=== PATIENT | female | born 1975 | race Caucasian/White ===

== ENCOUNTER 2018-05-04 16:00 | Outpatient (RCR) | payer OTHER, SELFPAY ==
--- NOTE | 2018-04-27 14:51 | HMH.PTOPEV ---
PT Outpatient Evaluation Rehab PT Outpatient Evaluation Start: 04/27/18 14:39 Freq: Status: Active Protocol: Document 04/27/18 14:39 MAVIS (Rec: 04/27/18 14:50 MAVIS [id number]) Electronically Signed By Samuel Collins, PT 04/27/18 14:39 Outpatient Therapy Subjective History Subjective History Patient is a 43 year old female presenting to outpatient PT with reports of chronic low back pain with intermittent RLE radicular symptoms to the R foot. Symptoms began approx 7 months ago after completing a sit to stand transfer from a couch. Radicular symptoms started approx 1 month ago. Special tests indicate R anterior rotation of the innominant. Most recent x-rays negative. Chief Complaint Pain Stiff Symptom Type Ache Sharp Burning Numbness Shooting Symptoms Relieved By OTC Meds Prescription Meds Prior Functional Limitations None Current Functional Limitations Lifting Sleeping Sitting Symptom Description Constant but Variable Level of pain today (0-10) 7 Pain scale - at its best (0-10) 5 Pain scale - at its worst (0-10) 9 Lumbopelvic Eval Posture Thoracic Spine Posture Standing Position Neutral Lumbar Spine Posture Standing Position Neutral Assistive device Assistive Devices None / NA Gait Observation General Gait Pattern Observation No Deviations/Normal Palapation tenderness right Lumbar/Sacral Palpation Findings Tenderness Lumbar/Sacral Palpation Overall Comment R PSIS Accessory Movement L-spine Vertebrae Accessory Movements Central P/A [place] that Elicit Symptoms S1 right Range of Motion Lumbar Spine Active Flexion Range of 50 Motion (degrees) Lumbar Spine Active Extension Range of 15 Motion (degrees) Left Lumbar Spine Lateral Flexion Active 25 Range of Motion (degrees) Right Lumbar Spine Lateral Flexion 25 Active Range of Motion (degrees) Lumbar Spine ROM Limitations Soft Tissue Tightness Bony Restriction Manual Muscle Test Bilateral Knee Extension Strength Grade 5 Normal Knee Flexion Strength Grade 5 Normal Hip Flexion Stren
== END 2018-05-04 16:05 | disposition home or self-care (01) ==
LOC: PT 16:00
PROVIDERS: Visit Provider Physician Assistant
DX: M54.41 Lumbago with sciatica, right side (principal); G89.29 Other chronic pain
CPT/HCPCS: 97010; 97014; 97033; 97110; 97163; G0283

== ENCOUNTER → 2018-08-08 15:30 | Outpatient (CLI) | payer OTHER, SELFPAY ==
--- NOTE | 2018-08-08 15:32 | MR_ITS ---
MR lumbar spine wo con, MR 3-d myelogram/MRCP HISTORY: RT sided LBP with RT leg burning and pain. Symptoms [id number]. No trauma. No HX back surgery. ITS.REASON: Back pain radiating down RLE ORDERING PHYSICIAN: Omid Almazan PATIENT AGE: 43 years Comparison: X-RAY 04-13-18 TECHNIQUE: Standard multiplanar multiecho sequences are performed without contrast. 3-D MIP and myelographic images are also rendered and reviewed FINDINGS: There is normal alignment. There is straightening of the lumbar lordosis. The spinal cord ends at the L1 level. T11-T12: Unremarkable. T12-L1: Unremarkable. L1-L2: Unremarkable. L2-L3: Unremarkable. L3-L4: Unremarkable. L4-L5: Mild disc desiccation with bulging disc. There is a right-sided foraminal annular fissure minimal disc protrusion with moderate right-sided foraminal narrowing. L5-S1: Degenerative disc disease with a medium sized broad-based central disc protrusion which is slightly eccentric toward the right. This does abut both S1 nerve roots slightly more so on the right and results in canal stenosis now measuring approximately 10 mm. There is moderate bilateral foraminal narrowing. IMPRESSION: 1. L4-L5: Mild disc desiccation with bulging disc. There is a right-sided foraminal annular fissure minimal disc protrusion with moderate right-sided foraminal narrowing. 2. L5-S1: Degenerative disc disease with a medium sized broad-based central disc protrusion which is slightly eccentric toward the right. This does abut both S1 nerve roots slightly more so on the right and results in canal stenosis now measuring approximately 10 mm. There is moderate bilateral foraminal narrowing
== END ==
PROVIDERS: PCP Nurse Practitioner Family; Visit Provider Nurse Practitioner Family
DX: M54.16 Radiculopathy, lumbar region (principal)
CPT/HCPCS: 72148; 76376

== ENCOUNTER → 2018-09-14 13:41 | Outpatient (POV) | payer OTHER, SELFPAY | PROVIDERS: Visit Provider Neurological Surgery | DX: Z00.00 Encounter for general adult medical examination without abnormal findings (principal) ==

== ENCOUNTER → 2018-09-26 13:17 | Outpatient (CLI) | payer OTHER, SELFPAY ==
--- NOTE | 2018-09-26 13:19 | MR_ITS ---
MR lumbar spine wo con, MR 3-d myelogram/MRCP HISTORY: RT sided LBP. Numbness toes of left foot. Right-sided low back pain, left toe numbness ITS.REASON: LUMBAR DISC HERNIATION ORDERING PHYSICIAN: Arianna Staples PATIENT AGE: 43 years Comparison: MRI 08-08-18. TECHNIQUE: Standard multiplanar multiecho sequences are performed without contrast. 3-D MIP and myelographic images are also rendered and reviewed FINDINGS: Normal alignment. Spinal cord ends at the L1 level. L3-4: Unremarkable. L4-5: Minimal bulging disc. Small annular fissure once again noted in the right foraminal region with mild right foraminal narrowing. L5-S1: Degenerative disc disease with bulging disc and a central disc herniation with superior extrusion. The extruded portion of the disc is in the left paracentral region. There is compression upon both S1 nerve roots from the central portion of the disc herniation with the extruded left aspect of the disc causing moderate compression upon the left S1 nerve root. There is also some compression upon the L5 nerve root on the left from the disc herniation. Extruded portion of the disc has developed since the previous exam. There is some edema within and around the extruded portion of the disc. IMPRESSION: At L5-S1 there is central disc herniation slightly eccentric toward the left. There is extrusion of the disc superiorly which is in the left paracentral region with compression upon the left L5 and left S1 nerve roots. There is also some minimal impression upon the right S1 nerve root. The extruded portion of the disc has developed since the previous exam. Persistent small annular fissure in the right foraminal area at L4-L5 with minimal disc protrusion at this region and mild foraminal narrowing on the right
== END ==
PROVIDERS: PCP Nurse Practitioner Family; Visit Provider Physician Assistant Medical
DX: M51.16 Intervertebral disc disorders with radiculopathy, lumbar region (principal)
CPT/HCPCS: 72148; 76376

== ENCOUNTER 2019-09-21 15:29 | Emergency (ER) | payer OTHER, SELFPAY ==
[2019-09-21 15:47] VITALS: BP 110/87; PULSE 88; RESP 20; TEMP 36.7; O2SAT 98; BMI 24.1
--- NOTE | 2019-09-21 15:56 | HMH.EDUTC ---
[facility] [place] Clinical Impression: Low back pain Qualifiers: Chronicity: chronic Back pain laterality: bilateral Sciatica presence: with sciatica Sciatica laterality: bilateral sciatica Qualified Code(s): M54.42 - Lumbago with sciatica, left side Disposition: Home, Self-Care Condition on Discharge: Good Instructions: Low Back Pain, DI for Low Back Pain Additional Instructions: Go home and rest. It would be best if you rested tomorrow too. No heavy lifting. No twisting. Take the oral medications as directed. The muscle relaxer (robaxin) will make you drowsy, so don't drive or operate heavy machinery after taking it. Don't start the oral steroids (medrol dose pack) until tomorrow, since you had the shots in here today. Follow up with your regular doctor. GO TO THE ER FOR ANY WORSENING SYMPTOMS OR CONCERN, ESPECIALLY BOWEL OR BLADDER ISSUES, SADDLE AREA NUMBNESS, FEVER, ETC Prescriptions: methylPREDNISolone [Medrol] 4 mg PO DIRECTED 6 Days #21 tab.ds.pk Transmission Status: Received by [id number] Methocarbamol [Robaxin 500mg Tab] 500 mg PO BIDP PRN #30 tab PRN Reason: Muscle Spasm Transmission Status: Received by [id number] Referrals: Dylon Domingo MD [Primary Care Provider] - Time of Disposition: 16:16 Medical Decision Making - Medical Records Medical records reviewed: No: I reviewed the patient's medical records. - Oc Inquiry Pt receiving controlled substance: No Vital Signs: 09/21/19 15:47 09/21/19 16:17 Temperature 98.1 F 98.1 F Temperature Source Oral Pulse Rate 88 Pulse Rate [Right Brachial] 88 Respiratory Rate 20 20 Blood Pressure 110/87 Blood Pressure [Right Arm] 110/87 Blood Pressure Mean [Right Arm] 94 Blood Pressure Source [Right Arm] Automatic Cuff Blood Pressure Position [Right Arm] Sitting 02 Sat by Pulse Oximetry 98 Oxygen Delivery Method Room Air Orders (Tests/Meds): ED MEDICATIONS Discontinued Medications Generic Name Dose Route Start Last Admin Trade Name Freq PRN Reason Stop Dose Admin Ketorolac Tromethamine 60 mg 09/21/19 15:57 09/21/19 16:04 Toradol 60mg/2ml Vial IM 09/21/19 15:58 60 mg ONCE ONE Administration Methylprednisolone Sodium Succinate 125 mg 09/21/19 15:57 09/21/19 16:04 Solu-Medrol 125mg/2ml Vial IM 09/21/19 15:58 125 mg ONCE ONE Administration [facility] [place]PI - General Stated complaint: back pain Time Seen by Provider: 09/21/19 15:55 Mode of Arrival: Ambulatory Source of Information: Patient Limitations: No Limitations Description of Symptoms (Recalled from Triage Doc. by RN): PATIENT C/O INCREASED BACK PAIN X 5 DAYS. STATES SHE HAS DIFFICULTY SITTING, BENDING/ROLLING OVER. HAS HISTORY OF BACK SURGERY OCTOBER 2018 (HAD PART OF L5 REMOVED). SHE HAS TAKEN HER CYCLOBENZAPRINE RX BUT STATES IT IS NOT HELPING HEENT Symptoms (Recalled from RN notes): No Resp Symptoms (Recalled from RN notes): No Skin Symptoms (Recalled from RN notes): No MS Symptoms (Recalled from RN notes): Yes Functional Status (Recalled from RN notes): WNL - History of Present Illness Provider Complaint: She c/o worsening low back pain that radiates down both her legs. She has a history of DDD and chronic low back pain. - Related Data Home Medications Medication Instructions Recorded Confirmed Cyclobenzaprine HCl 10 mg PO TID 08/20/18 09/21/19 [Cyclobenzaprine 10mg Tab] Previous Rx's Medication Instructions Recorded Methocarbamol [Robaxin 500mg Tab] 500 mg PO BIDP PRN #30 tab 09/21/19 methylPREDNISolone [Medrol] 4 mg PO DIRECTED 6 Days #21 09/21/19 tab.ds.pk Allergies Allergy/AdvReac Type Severity Reaction Status Date / Time Penicillins [PENICILLINS] Allergy Mild Verified 08/03/18 13:45 pseudoephedrine Allergy Mild Verified 08/03/18 13:45 [From SUDAFED] - Worker's Comp Is this a Worker's Comp case?: No [facility] History - Hepatitis A Screen Drug use history?: No
[2019-09-21 16:17] VITALS: BP 110/87; PULSE 88; RESP 20; TEMP 36.7; O2SAT 98
== END 2019-09-21 16:20 | disposition home or self-care (01) ==
PROVIDERS: Emergency Provider Nurse Practitioner Family; PCP Emergency Medicine
DX: M54.42 Lumbago with sciatica, left side (principal); M51.36 Other intervertebral disc degeneration, lumbar region; Z87.442 Personal history of urinary calculi; Z90.09 Acquired absence of other part of head and neck; Z90.49 Acquired absence of other specified parts of digestive tract; F17.210 Nicotine dependence, cigarettes, uncomplicated
CPT/HCPCS: 96372; 99201

== ENCOUNTER → 2019-12-31 14:14 | Outpatient (CLI) | payer OTHER, SELFPAY ==
--- NOTE | 2019-12-31 14:17 | XR_ITS ---
PROCEDURE: XR FOOT WT BEARING RT 3V CLINICAL INDICATION: skin lesion Right great toe lesion COMPARISON: No exams were available for comparison FINDINGS: No fracture or dislocation. No lytic or blastic change. There is normal mineralization. The joint spaces are well-preserved. No significant degenerative/arthritic changes. No erosive changes evident. Other findings:None. IMPRESSION: No acute findings. Dictated by: Frandy Salas MD 12/31/2019 14:40 Electronically signed by Frandy Salas MD in [place] 12/31/2019 14:40
--- NOTE | 2019-12-31 14:17 | XR_ITS ---
PROCEDURE: XR FOOT WT BEARING LT 3V CLINICAL INDICATION: skin lesion COMPARISON: No exams were available for comparison FINDINGS: No fracture or dislocation. No lytic or blastic change. There is normal mineralization. The joint spaces are well-preserved. No significant degenerative/arthritic changes. No erosive changes evident. Other findings:None. IMPRESSION: No acute findings. Dictated by: Frandy Salas MD 12/31/2019 14:40 Electronically signed by Frandy Salas MD in [place] 12/31/2019 14:40
== END ==
PROVIDERS: PCP Emergency Medicine; Visit Provider Podiatrist
DX: L98.9 Disorder of the skin and subcutaneous tissue, unspecified (principal)
CPT/HCPCS: 73630

== ENCOUNTER → 2019-12-31 17:58 | Outpatient (CLI) | payer OTHER, SELFPAY | PROVIDERS: Visit Provider Podiatrist | DX: L84 Corns and callosities (principal); B07.0 Plantar wart; L57.0 Actinic keratosis; L98.9 Disorder of the skin and subcutaneous tissue, unspecified; M79.671 Pain in right foot | CPT/HCPCS: 87070; 87077; 87186; 87205 ==

== ENCOUNTER 2020-10-06 15:08 | Emergency (ER) | payer OTHER, SELFPAY ==
[2020-10-06 15:50] VITALS: BP 125/85; PULSE 82; RESP 16; TEMP 36.6; O2SAT 97; BMI 23.3
--- NOTE | 2020-10-06 15:57 | XR_ITS ---
PROCEDURE: XR THORACIC SPINE 2V CLINICAL INDICATION: FALL COMPARISON: CR TSP2 THORACIC SPINE AP LAT-2VIEW from 09/26/2012 FINDINGS: No acute fractures or traumatic subluxation. Bone density is normal. No significant degenerative/arthritic changes. Paravertebral soft tissues are unremarkable IMPRESSION: No acute fractures or traumatic subluxation. Dictated by: Manuela Frankel 10/06/2020 16:28 Manuela Frankel in [place] 10/06/2020 16:28
--- NOTE | 2020-10-06 15:57 | XR_ITS ---
PROCEDURE: XR WRIST RT MIN 3V CLINICAL INDICATION: FALL COMPARISON: No exams were available for comparison FINDINGS: No fracture or dislocation. No lytic or blastic change. There is normal mineralization. The joint spaces are well-preserved. No significant degenerative/arthritic changes. No erosive changes evident. Other findings:No significant soft tissue abnormality. IMPRESSION: No acute findings. Dictated by: Manuela Frankel 10/06/2020 16:30 Manuela Frankel in [place] 10/06/2020 16:30
--- NOTE | 2020-10-06 16:07 | HMH.EDUTC ---
[facility] [place] Clinical Impression: Strain of wrist, right Qualifiers: Encounter type: initial encounter Qualified Code(s): S66.911A - Strain of unspecified muscle, fascia and tendon at wrist and hand level, right hand, initial encounter Contusion Qualifiers: Encounter type: initial encounter Contusion area: wrist Laterality: right Qualified Code(s): S60.211A - Contusion of right wrist, initial encounter Disposition: Home, Self-Care Condition on Discharge: Good Instructions: Muscle Strain, DI for Muscle Strain, DI for Back Strain or Sprain Additional Instructions: Weightbearing as tolerated rest Ice with cold pack for 20 minutes remove may repeat for comfort every hour Anup wrap for support and swelling no less in the shower. Be sure not too tight but not to lose either Elevate with wrist above your heart as much as possible to help reduce swelling and therefore pain Ibuprofen every 6 hours as needed for pain or inflammation. If needs something more you can take Tylenol every 4 hours as needed as long as her primary care has told he was okayed for you to take both. If improving any do not need to follow-up you can bring begin exercising 2-3 weeks after injury. Follow-up immediately if new or worsening symptoms or no noticeable improvement over the next 3-5 days. call ortho Referrals: Dylon Domingo MD [Primary Care Provider] - Virgil Frankel MD [Staff Physician] - Time of Disposition: 16:34 Medical Decision Making - Oc Inquiry Pt receiving controlled substance: No Vital Signs: 10/06/20 15:50 Temperature 97.8 F Temperature Source Oral Pulse Rate [Right Brachial] 82 Respiratory Rate 16 Blood Pressure [Right Arm] 125/85 Blood Pressure Mean [Right Arm] 98 Blood Pressure Source [Right Arm] Automatic Cuff Blood Pressure Position [Right Arm] Sitting 02 Sat by Pulse Oximetry 97 Oxygen Delivery Method Room Air Orders (Tests/Meds): ORDERS Category Date Time Status XR thoracic spine 2V Stat Exams 10/06/20 15:57 Taken XR wrist RT min 3V Stat Exams 10/06/20 15:57 Taken [facility] [place] HPI - General Chief complaint: [facility] Stated complaint: AO fall 1500 injured R side/back and wrist Time Seen by Provider: 10/06/20 16:07 Mode of Arrival: Ambulatory Source of Information: Patient Limitations: No Limitations Description of Symptoms (Recalled from Triage Doc. by RN): PATIENT C/O INJURY TO RIGHT WRIST AND MIDDLE BACK AFTER FALLING OFF OF A BRICK WALL APPROX 1500 TODAY HEENT Symptoms (Recalled from RN notes): No Resp Symptoms (Recalled from RN notes): No Skin Symptoms (Recalled from RN notes): No MS Symptoms (Recalled from RN notes): Yes Functional Status (Recalled from RN notes): WNL - History of Present Illness Provider Complaint: 45 yr old female presents for pain in rt wrist and mid back. pt states she was moving furniture and slipped on a wall and fell hitting rt wrist,knee and mid back. - Related Data Home Medications Medication Instructions Recorded Confirmed No Known Home Medications 10/06/20 10/06/20 Allergies Allergy/AdvReac Type Severity Reaction Status Date / Time Penicillins [PENICILLINS] Allergy Mild Verified 01/21/20 11:25 pseudoephedrine Allergy Mild Verified 01/21/20 11:25 [From SUDAFED] - Worker's Comp Is this a Worker's Comp case?: No [facility] History - Hepatitis A Screen Drug use history?: No High risk sexual behaviors?: No History of sexually transmitted infection?: No Currently employed?: No Childcare worker?: No Do you have indoor plumbing?: Yes Do you have electricity?: Yes Attestation statement:: This patient has been screened for Hepatitis A risk factors. I have reviewed the patient's past medical history: Yes 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: Reports:: Kidney Stones, Migraine Denies:: Asthma, Cancer, Chronic Obstructive Pulmonary Disease (COPD), Depression, Diabetes Mellitus Type 1, Diabetes Mellitus Type 2, Heart Murmur, Hypertension, MRSA, Seiz
[2020-10-06 16:39] VITALS: BP 125/85; PULSE 82; RESP 16; TEMP 36.6; O2SAT 97
== END 2020-10-06 16:40 | disposition home or self-care (01) ==
PROVIDERS: Emergency Provider Nurse Practitioner Family; PCP Emergency Medicine
DX: S60.211A Contusion of right wrist, initial encounter (principal); W18.00XA Striking against unspecified object with subsequent fall, initial encounter; Y92.89 Other specified places as the place of occurrence of the external cause; F17.210 Nicotine dependence, cigarettes, uncomplicated; G43.709 Chronic migraine without aura, not intractable, without status migrainosus; Z87.442 Personal history of urinary calculi
CPT/HCPCS: 72070; 73110; 99202; G0463

== ENCOUNTER 2022-08-15 17:59 | Emergency (ER) | payer OTHER, SELFPAY ==
[2022-08-15 18:10] VITALS: BP 127/85; PULSE 76; RESP 20; TEMP 37.2; O2SAT 96; BMI 22.4
[2022-08-15 18:24] VITALS: BP 127/85; PULSE 76; RESP 20; TEMP 37.2; O2SAT 96
--- NOTE | 2022-08-15 18:30 | EXP.UTC ---
Discharge Plan Disposition Patient Disposition: Home, Self-Care Condition: Good Prescriptions Prescriptions: New cefdinir 300 mg capsule 300 mg PO BID Qty: 20 0RF No Action medroxyprogesterone 150 mg/mL suspension See Rx Instructions .ROUTE .COMPLEX Qty: 1 3RF Dose Instruction: INJECT 1ML INTRAMUSCULARLY ONCE EVERY 3 MONTHS DIRECTED Rx Instructions: INJECT 1ML INTRAMUSCULARLY ONCE EVERY 3 MONTHS DIRECTED Referrals Follow up/Referrals: Dylon Domingo MD [Primary Care Provider] - See instructions Activity Restrictions/Add. Instructions Additional Instructions/Restrictions: Start antibiotic as soon as possible and be sure to take as ordered for full length of time even though he should start feeling better in 24-48 hours. Tylenol or Motrin as needed for pain or fever Encourage fluids, water, Gatorade, Powerade, Pedialyte if infant/toddler/child Warm compresses often helps when placed over ear Return immediately for new or worsening symptoms no noticeable improvement in 48-72 hours and in 10-14 days to ensure the ears are return to baseline. Follow-up with primary care Clinical Impressions Clinical Impression: Otitis media, Excess wax in ear Instructions Patient Instructions: Middle Ear Infection Discharge ED Provider: Darlin ([facility])Tyler [facility] [place] HPI General Stated complaint: earache both ears,congestion,cough for a month Mode of Arrival: Ambulatory Source of Information: Patient Limitations: No Limitations Time Seen by Provider: 08/15/22 18:30 Description of Symptoms (Recalled from Triage Doc. by RN): PATIENT C/O BILATERAL EAR PAIN AND CONGESTION SINCE THIS MORNING HEENT Symptoms (Recalled from RN notes): Yes Resp Symptoms (Recalled from RN notes): No Skin Symptoms (Recalled from RN notes): No MS Symptoms (Recalled from RN notes): No Functional Status (Recalled from RN notes): WNL History of Present Illness Provider Complaint: 47 yr old female presents for evi ear pain that started this am. Related Data Previous Rx's Medication Instructions Recorded medroxyprogesterone 150 mg/mL See Rx Instructions .Route 12/15/21 intramuscular suspension .COMPLEX #1 mL cefdinir 300 mg capsule 300 mg PO BID #20 caps 08/15/22 Allergies Allergy/AdvReac Type Severity Reaction Status Date / Time Penicillins [PENICILLINS] Allergy Mild Verified 12/03/21 13:10 pseudoephedrine Allergy Mild Verified 12/03/21 13:10 [From [facility]CCO] Worker's Comp Is this a Worker's Comp case?: No [facility] Disclaimer: The information contained in this section may have been updated after the patient was seen, as this information can be updated by other users. 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) Smoking Status: Former smoker pack-years: 0 second hand exposure: Yes alcohol intake: never substance use type: denies use current occupational status: unemployed Travel in the last 8 weeks: None ROS Obtained: Yes All systems reviewed & no additional complaints except as documented Constitutional Constitutional: Reports system reviewed and no additional complaints, except as documented and Reports as per HPI Eyes Eyes: Reports system reviewed and no additional complaints, except as documented and Reports as per HPI ENT Ears, Nose, Mouth, and Throat: Reports system reviewed and no additional complaints, except as documented, Reports as per HPI and Reports otalgia Cardiovascular Cardiovascular: Reports system reviewed and no additional complaints, except as documented Respiratory Respiratory: Reports system reviewed and no additional complaints, except as documented Gastrointestinal Gastrointestingal: Reports system reviewed and no additional complaints, except as documented Musculoskeletal Musculoskeletal: Reports system reviewed and no additional complain
== END 2022-08-15 18:46 | disposition home or self-care (01) ==
PROVIDERS: Emergency Provider Nurse Practitioner Family; PCP Emergency Medicine
DX: H66.91 Otitis media, unspecified, right ear (principal); H61.22 Impacted cerumen, left ear
CPT/HCPCS: 99212; 99214; G0463

== ENCOUNTER 2023-05-25 23:19 | Observation (INO) | payer OTHER, SELFPAY ==
[2023-05-25 23:20] VITALS: BP 124/82; PULSE 120; RESP 18; TEMP 37.8; O2SAT 99; BMI 21.3
[2023-05-25 23:30] VITALS: BP 111/73; PULSE 118; O2SAT 98
--- NOTE | 2023-05-25 23:34 | CT_ITS ---
PROCEDURE INFORMATION: Exam: CT Abdomen And Pelvis Without Contrast Exam date and time: 05/25/2023 11:44 PM Age: 48 years old Clinical indication: Abdominal pain; Prior surgery; Surgery date: 6+ months; Surgery type: Cholecystectomy; Additional info: L>r flank pain, h/o stones TECHNIQUE: Imaging protocol: Computed tomography of the abdomen and pelvis without contrast. Total images: 264 Radiation optimization: All CT scans at this facility use at least one of these dose optimization techniques: automated exposure control; mA and/or kV adjustment per patient size (includes targeted exams where dose is matched to clinical indication); or iterative reconstruction. REPORTING DATA: Count of CT and Cardiac NM exams in prior 12 months: This patient has received 0 known CTs and 0 known cardiac nuclear medicine studies in the 12 months prior to the current study. COMPARISON: [facility] CT abdomen pelvis wo con 09/05/2017 9:49 PM FINDINGS: Lungs: Lung bases are clear. Heart: Trace pericardial effusion. Normal heart size. Liver: Normal. No mass. Gallbladder and bile ducts: Status post cholecystectomy. No bile duct dilatation. Pancreas: Minor peripancreatic edema. Spleen: Nonenlarged spleen with scattered calcified granuloma. Adrenal glands: Left greater than right adrenal thickening/hyperplasia. Kidneys and ureters: Left nephrolithiasis with evolving staghorn type calculus measuring approximately 18 mm in the midpole. Left greater than right mild perinephric edema. Tiny left renal cortical cyst. No hydronephrosis. No ureteral stones. Stomach and bowel: Unremarkable stomach and duodenum. No ileus or bowel obstruction. Unremarkable small bowel. Unremarkable terminal ileum. Mild sigmoid diverticulosis. Unremarkable rectum. Appendix: Normal appendix. Intraperitoneal space: Unremarkable. No free air. No significant fluid collection. Vasculature: Atherosclerotic aorta without aneurysm. Lymph nodes: Unremarkable. No enlarged lymph nodes. Urinary bladder: Collapsed bladder. Reproductive: 2.5 cm left ovarian cyst requiring no strict follow-up. Retroverted uterus. Physiologic right ovary. No adnexal mass. Status post tubal ligation. Bones/joints: Moderate degenerative disc disease L5-S1. Mild degenerative changes bilateral hips and SI joints. No acute osseous abnormality. Soft tissues: Very tiny fat containing umbilical hernia. IMPRESSION: 1. Left greater than right perinephric edema concerning for pyelonephritis. 2. 18 mm evolving staghorn type calcification left kidney. No hydronephrosis. 3. Minor peripancreatic edema likely from the directly adjacent left renal process, cannot exclude coexisting acute pancreatitis. 4. 2.5 cm left ovarian cyst requiring no strict follow-up. 5. Additional chronic and incidental findings. COMMENTS: Consistent with the [employer]'s Incidental Findings Committee white paper (J Am Mandeep Radiol 2018): Any incidental renal lesion less than 1 cm or classified as too small to characterize, or any incidental cystic renal lesion characterized as simple-appearing, is likely benign. No follow-up imaging is recommended for these lesions per consensus recommendations based on imaging criteria.
[2023-05-25 23:37] LABS: Microscopic, Urine URINE MICROSCOPIC (MICROSCOPIC)
[2023-05-25 23:38] LABS: Appearance,Urine Slightly Cloudy (Clear); Bilirubin,Urine Negative (Negative); Blood, Urine 1+ (Negative); Color,Urine YELLOW (Yellow); Glucose,Urine (UA) Negative (Negative); Ketones,Urine TRACE (Negative); Leukocyte Esterase,Urine 2+ (Negative); Nitrate,Urine POSITIVE (Negative); Protein,Urine 1+ (Negative); Urobilinogen,Urine >=8.0 EU/dl (0.2)
--- NOTE | 2023-05-25 23:39 | HMH.EDGENADL ---
Discharge Plan Disposition Patient Disposition: Admitted Condition: Good Prescriptions Prescriptions: No Action medroxyprogesterone 150 mg/mL suspension See Rx Instructions .ROUTE .COMPLEX Qty: 1 3RF Dose Instruction: INJECT 1ML INTRAMUSCULARLY ONCE EVERY 3 MONTHS DIRECTED Rx Instructions: INJECT 1ML INTRAMUSCULARLY ONCE EVERY 3 MONTHS DIRECTED cefdinir 300 mg capsule 300 mg PO BID Qty: 20 0RF Referrals Follow up/Referrals: Dylon Domingo MD [Primary Care Provider] - See instructions Clinical Impressions Clinical Impression: Sepsis due to urinary tract infection Instructions Patient Instructions: DI for Urinary Tract Infection (UTI), DI for Urinary Tract Infection in Children Discharge ED Provider: Tati Orosco General Adult HPI General Chief complaint: Urogenital-Female Stated complaint: fever, back pain x6days Time Seen by Provider: 05/25/23 23:26 Mode of Arrival: Ambulatory Source of Information: Patient and Spouse Limitations: No Limitations Description of Symptoms (Recalled from ER Triage Doc. by RN): Patient reports dysuria, chills, and lower back pain starting May 20. Patient reports increased water intake without change. Patient reports fever at home last dose of ibuprofen at 3pm. History of Present Illness HPI narrative: This patient is a 48-year-old female with history of tobacco use presenting to the emergency department for evaluation with concern for fever, chills, flank pain, dysuria, and nausea that started 05/20. She states that she increased her water intake without good improvement. She states that it started out as left flank pain, which felt similar to prior kidney stones that she had had, but then it progressed to bilateral flank pain as well as the fevers, chills, and dysuria. She took ibuprofen today around 3 PM without good improvement. No other concerns noted at this time. Related Data Previous Rx's Medication Instructions Recorded medroxyprogesterone 150 mg/mL See Rx Instructions .Route 12/15/21 intramuscular suspension .COMPLEX #1 mL cefdinir 300 mg capsule 300 mg PO BID #20 caps 08/15/22 Allergies Allergy/AdvReac Type Severity Reaction Status Date / Time Penicillins [PENICILLINS] Allergy Mild Verified 05/26/23 00:21 pseudoephedrine Allergy Mild Verified 05/26/23 00:21 [From [facility]] [facility] Disclaimer: The information contained in this section may have been updated after the patient was seen, as this information can be updated by other users. 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 Sciatica of right side Social History Smoking Status: Current every day smoker tobacco type: cigarettes packs per day: 1 second hand exposure: Yes alcohol intake: never substance use type: denies use current occupational status: unemployed Travel in the last 8 weeks: None ROS Obtained: Yes All systems reviewed & no additional complaints except as documented Physical Exam General General appearance: alert and in no apparent distress Comment: Nontoxic-appearing Head Head exam: atraumatic and normocephalic Eye Eye exam: Present normal appearance, PERRL and EOMI ENT ENT exam: Present normal exam, normal oropharynx, mucous membranes moist and normal external ear exam Neck Neck exam: Present normal inspection, full ROM and trachea midline; Absent tenderness Chest Chest inspection: Present normal inspection and symmetric chest wall rise; Absent tenderness Respiratory Respiratory exam: Present normal lung sounds bilaterally; Absent respiratory distress, wheezes, stridor or accessory muscle use Cardiovascular Cardiovascular exam: Present normal rhythm and tachycardia Abdominal Exam Abdominal exam: Present soft, tenderness (Suprapubic) and normal bowel sounds; Absent distention, guarding, rebound or rigidity Extremities Exam Extremities exam: Present normal inspection, full ROM and normal capillary refill; Absent tenderness or edema Back Exam Back exam: Present normal inspection, full ROM, tenderness, CVA tenderness (R) and CVA tenderness (L) Neurological Exam Neurological exam: Present alert, oriented X3, CN II-XII intact and normal gait; Absent motor sensory deficit Psychiatric Psychiatric exam: Present normal affect and normal mood Skin Skin exam: Present warm and dry Medical Decision Making Medical Records Medical records reviewed: Yes I reviewed the patient's medical records. Oc Inquiry Pt receiving controlled substance: No Vital Signs: 05/25/23 23:20 05/25/23 23:30 05/26/23 00:45 Temperature 100.0 F H Temperature Source Oral Pulse Rate 118 H 85 Pulse Rate [Left Radial] 120 H Respiratory Rate 18 18 Blood Pressure 111/73 110/71 Blood Pressure [Right Arm] 124/82 Blood Pressure Mean [Right Arm] 96 Blood Pressure Source [Right Arm] Automatic Cuff Blood Pressure Position [Right Arm] Sitting 02 Sat by Pulse Oximetry 99 98 96 Oxygen Delivery Method Room Air Room Air Lab Data Lab results reviewed: Yes I reviewed the patient's lab results. Lab Results 05/25/23 21:40: WBC 17.3 H, RBC 4.07 L, Hgb 12.9, Hct 37.6, MCV 92.4, MCH 31.7 H, MCHC 34.2, RDW 14.3, Plt Count 228, MPV 9.3, Neut % (Auto) 80.4 H, Lymph % (Auto) 11.8, [place] % (Auto) 6.7, Eos % (Auto) 0.8, Baso % (Auto) 0.3, Neut # (Auto) 13.9 H, Lymph # (Auto) 2.0, [place] # (Auto) 1.2 H, Eos # (Auto) 0.1, Baso # (Auto) 0.1, Sodium 135 L, Potassium 3.2 L, Chloride 104, Carbon Dioxide 21 L, Anion Gap 13.2, BUN 14, Creatinine 0.90, Estimated Creat Clear 74, Estimated GFR 67, Est GFR ( Amer) 82, Glucose 118 H, Lactate 0.9, Calcium 8.4, Lipase 35 05/25/23 23:23: Urine Color Yellow, Urine Appearance Slightly cloudy, Urine pH 6.0, Ur Specific [place] 1.020, Urine Protein 1+, Urine Glucose (UA) Negative, Urine Ketones Trace, Urine Blood 1+, Urine Nitrate Positive, Urine Bilirubin Negative, Urine Urobilinogen >=8.0, Ur Leukocyte Esterase 2+ A, Urine WBC 5-10, Urine Bacteria 4+ 05/25/23 21:40 05/25/23 21:40 Orders (Tests/Meds): ED MEDICATIONS Generic Name Dose Route Start Last Admin Trade Name Freq PRN Reason Stop Dose Admin Ceftriaxone Sodium 2 gm/ 100 mls @ 200 mls/hr 05/25/23 23:45 05/26/23 00:35 Sodium Chloride IV 06/04/23 23:44 200 mls/hr Q24H WNE Administration Sodium Chloride 1,000 mls @ 999 mls/hr 05/26/23 00:49 Sod Chlor 0.9% 1000ml Bag IV 05/26/23 01:49 .Q1H1M ONE Discontinued Medications Generic Name Dose Route Start Last Admin Trade Name Freq PRN Reason Stop Dose Admin Lactated Ringer's 1,000 mls @ 999 mls/hr 05/25/23 23:34 05/25/23 23:42 Lactated Ringer's 1000 Ml Bag IV 05/26/23 00:34 999 mls/hr .Q1H1M ONE Administration Ketorolac Tromethamine 15 mg 05/25/23 23:34 05/25/23 23:43 Ketorolac 30mg/Ml Vial IV 05/25/23 23:35 15 mg ONCE ONE Administration Ondansetron HCl 4 mg 05/25/23 23:34 05/25/23 23:43 Ondansetron 4mg/2ml Vial IV 05/25/23 23:35 4 mg ONCE ONE Administration ORDERS Category Date Time Status CT abdomen pelvis wo con Stat Cat Scan 05/25/23 23:34 Completed BMP [Basic Metabolic Panel] Stat Lab 05/25/23 21:40 Completed Complete Blood Count Auto Diff Stat Lab 05/25/23 21:40 Results Lactic Acid Stat Lab 05/25/23 21:40 Completed Lipase Stat Lab 05/26/23 21:40 Completed Urinalysis and Microscopic Stat Lab 05/25/23 23:23 Completed Blood Culture Stat Micro 05/26/23 00:06 Ordered Urine Culture Stat Micro 05/25/23 23:23 Received Medical Decision Narrative: In summary, this patient is a 48-year-old female presenting to the Emergency Department for evaluation of bilateral flank pain, dysuria, fevers, chills, and nausea. Differential diagnoses considered include but are not limited to pyelonephritis, ureterolithiasis, JORGE ALBERTO, cystitis, sepsis. Ruling out the most morbid conditions drove assessment. On exam, the patient is nontoxic-appearing. She is slightly tachycardic and borderline febrile. She is suprapubic tenderness and bilateral CVA tenderness. Workup included CBC, BMP, lactic acid, urinalysis, and CT abdomen and pelvis without IV contrast. She was given a bolus of IV fluids as well as IV Toradol, acetaminophen, and Zofran to assess for symptomatic improvement. I independently interpreted CT scan prior to the radiologist read and noted perinephric fat stranding without obstructive ureteral stones. Patient does have a left staghorn calculus. Please see their read for final interpretation. Labs were obtained that demonstrated leukocytosis and concerns for urinary tract infection. Patient does meet sepsis criteria. Second liter bolus of IV fluids was ordered so that the patient was effectively given a sepsis bolus. She was given IV Rocephin as well. Blood cultures and urine culture are pending. On reassessment, patient had good improvement after administration of IV fluids. She has good perfusion with improvement in her heart rate. I had a discussion with her regarding the risk for bacteremia given that she meets sepsis criteria, and patient is agreeable to be admitted. Given this, I had a discussion with the hospitalist who graciously excepted the patient for admission. The patient was admitted in stable condition for further evaluation and management. Critical Care Critical Care Time Critical Care Time: No
[2023-05-25] MEDS: LACTATED RINGERS 1000ML 1,000 ML 999 ML IV (23:42)
[2023-05-25] MEDS: KETOROLAC 30MG/ML VIAL 15 MG IV (23:43)
[2023-05-25] MEDS: ONDANSETRON 4MG/2ML VIAL 4 MG IV (23:43)
[2023-05-25 23:55] LABS: Bacteria,Urine 4+ /lpf
[2023-05-25 23:55] LABS: Basophils # 0.1 K/mm3 (0-0.2); Basophils % 0.3 % (0.1-2.0); Eosinophils # 0.1 K/mm3 (0.0-0.4); Eosinophils % 0.8 % (0.1-12.0); Hematocrit 37.6 % (37.0-47.0); Hemoglobin 12.9 g/dL (12.2-16.2); Lymphocytes % 11.8 % (10-50); Mean Corpuscular HGB Conc 34.2 g/dL (31.8-35.4); Mean Corpuscular Hemoglobin 31.7 pg (27.0-31.2); Mean Corpuscular Volume 92.4 fl (81-99); Mean Platelet Volume 9.3 fl (7.4-10.4); Monocytes # 1.2 K/mm3 (0.1-1.0); Monocytes % 6.7 % (1.7-9.3); Neutrophils # 13.9 K/mm3 (1.8-7.8); Neutrophils % 80.4 % (37.0-80.0); Platelet Count 228 K/mm3 (142-424); Red Blood Count 4.07 M/mm3 (4.20-5.40); Red Cell Distribution Width 14.3 % (11.5-17.5); White Blood Count 17.3 K/mm3 (4.8-10.8)
[2023-05-25 23:56] LABS: Chloride 104 mmol/L (98-107); Potassium 3.2 mmoL/L (3.5-5.1); Sodium 135 mmol/L (136-145)
[2023-05-25 23:59] LABS: Anion Gap 13.2 mEq/L (5-15); Blood Urea Nitrogen 14 mg/dl (7-17); Calcium 8.4 mg/dl (8.4-10.2); Carbon Dioxide 21 mmol/L (22.0-30.0); Creatinine Clearance Estimated 74 mL/min (50-200); Estimated Glomerular Filt Rate 67 ml/min (>60); GFR (African American) 82 ML/MIN (>60); Glucose 118 mg/dl (74-100)
[2023-05-26] VITALS (12 sets, daily range): BP systolic 89–110; BP diastolic 52–71; PULSE 65–86; RESP 16–18; TEMP 36.4–37.1; O2SAT 94–100; BMI 21.2
[2023-05-26] LABS: Lactic Acid 0.9 mmol/L (0.7-2.1)
[2023-05-26 00:05] LABS: MANUAL DIFFERENTIAL MANUAL DIFFERENTIAL (MANUAL DIFF)
[2023-05-26 00:30] LABS: Lipase 35 U/L (23-300)
[2023-05-26] MEDS: CEFTRIAXONE SODIUM 2 GM in 0.9 % SODIUM CHLORIDE 100 ML IV ×2 (00:35→20:40)
--- NOTE | 2023-05-26 00:50 | PC.NURSE ---
Notified house talent acquisition administrator of need for bed assignment. Patient to be admitted for UTI/pylonephritis/sepsis.
--- NOTE | 2023-05-26 00:51 | EXP.HP ---
History of Present Illness *Admission Date: 05/26/23 *Reason for visit:: pyelonephritis/ sepsis *History of present illness: This is a 48-year-old female with no other significant history than tobacco use, and previous kidney stones presenting to the emergency department for evaluation of fever, chills, flank pain, dysuria, and nausea that started 05/20. She states that she increased her water intake without good improvement. She states that it started out as left flank pain, which felt similar to prior kidney stones that she had had, but then it progressed to bilateral flank pain as well as the fevers, chills, and dysuria. She took ibuprofen today around 3 PM without good improvement. No other concerns noted at this time. Admitted for treatment and management. [facility] Disclaimer: The information contained in this section may have been updated after the patient was seen, as this information can be updated by other users. 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 (Updated 05/26/23 @ 05:05 by Ronnie Brennan APRN) Degenerative disk disease Kidney stones Sciatica of right side Spinal stenosis Surgical History (Updated 05/26/23 @ 01:41 by Halina Hardy RN) H/O Spinal surgery History of tonsillectomy History of tubal ligation Hx of cholecystectomy Social History Smoking Status: Current every day smoker tobacco type: cigarettes packs per day: 1 second hand exposure: Yes alcohol intake: never substance use type: denies use current occupational status: unemployed Travel in the last 8 weeks: None Review of Systems Review of Systems Review of systems:: pertinent systems reviewed and negative unless documented below Meds Home Medications and Allergies Home Medications Medication Instructions Recorded Confirmed Type No Known Home Medications 05/26/23 05/26/23 History New Prescriptions to Start Prescriptions: Allergies Allergy/AdvReac Type Severity Reaction Status Date / Time Penicillins [PENICILLINS] Allergy Mild Verified 05/26/23 00:21 pseudoephedrine Allergy Mild Verified 05/26/23 00:21 [From [facility]] Exam Data for Last 24 hours Vital signs and Labs for Last 24 Hours: Temp Pulse Resp BP Pulse Ox O2 Del Method 100.0 F H 85 18 110/71 96 Room Air 05/25/23 23:20 05/26/23 00:45 05/26/23 00:45 05/26/23 00:45 05/26/23 00:45 05/26/23 00:45 Laboratory Results - last 24 hr 05/25/23 21:40: WBC 17.3 H, RBC 4.07 L, Hgb 12.9, Hct 37.6, MCV 92.4, MCH 31.7 H, MCHC 34.2, RDW 14.3, Plt Count 228, MPV 9.3, Neut % (Auto) 80.4 H, Lymph % (Auto) 11.8, [place] % (Auto) 6.7, Eos % (Auto) 0.8, Baso % (Auto) 0.3, Neut # (Auto) 13.9 H, Lymph # (Auto) 2.0, [place] # (Auto) 1.2 H, Eos # (Auto) 0.1, Baso # (Auto) 0.1, Sodium 135 L, Potassium 3.2 L, Chloride 104, Carbon Dioxide 21 L, Anion Gap 13.2, BUN 14, Creatinine 0.90, Estimated Creat Clear 74, Estimated GFR 67, Est GFR ( Amer) 82, Glucose 118 H, Lactate 0.9, Calcium 8.4, Lipase 35 05/25/23 23:23: Urine Color Yellow, Urine Appearance Slightly cloudy, Urine pH 6.0, Ur Specific [place] 1.020, Urine Protein 1+, Urine Glucose (UA) Negative, Urine Ketones Trace, Urine Blood 1+, Urine Nitrate Positive, Urine Bilirubin Negative, Urine Urobilinogen >=8.0, Ur Leukocyte Esterase 2+ A, Urine WBC 5-10, Urine Bacteria 4+ I & O for Last 24 hours: Intake & Output 05/23/23 05/24/23 05/25/23 05/26/23 23:59 23:59 23:59 23:59 Weight 59.874 kg Constitutional Constitutional: mild distress and cooperative *Routine HEENT Exam Head: Present normocephalic and atraumatic Eye: Present EOMI, PERRL and normal accommodation ENT: Present mucous membranes moist *Routine Neck Exam Neck: Present supple, full ROM and trachea midline *Routine Respiratory Exam Respiratory: Present diminished air movement, normal respiratory effort, able to speak in complete sentences and symmetric chest movement *Routine Cardiovascular Exam Cardiovascular: Present RRR, Normal S1, Normal S2 and tachycardia *Routine Abdominal Exam Abdominal: Present soft, normoactive bowel sounds and tenderness; Absent organomegaly Comments: left flank pain *Routine Rectal Exam Rectal:: deferred *Routine Genitalia Exam Genitalia:: deferred *Routine Extremities Exam Extremities: Present full ROM and pulses intact; Absent cyanosis, clubbing or edema *Routine Skin Exam Skin: Present intact, dry and warm *Routine Neurological Exam Neurological: Present alert, oriented X3, normal reflexes, moving all extremities and normal speech Routine Psychiatric Exam Psychiatric: Present normal thought process, cooperative and good judgment H&P: Result Imaging and Cardiology CT scan - abdomen: Status: image reviewed by me, Preliminary report and final report EKG: Status: image reviewed by me and Preliminary report Assessment and Plan *Assessment and plan (1) Sepsis due to urinary tract infection: Status: Acute Category: Medical Code(s): A41.9 - Sepsis, unspecified organism; N39.0 - Urinary tract infection, site not specified (2) Pyelonephritis: Status: Acute Category: Medical Code(s): N12 - Tubulo-interstitial nephritis, not specified as acute or chronic (3) Acute hypokalemia: Status: Acute Category: Medical Code(s): E87.6 - Hypokalemia (4) Tobacco abuse: Status: Acute Category: Medical Code(s): Z72.0 - Tobacco use Plan 48-year-old female with no other significant history than tobacco use, and previous kidney stones presenting to the emergency department for evaluation of fever, chills, flank pain, dysuria, and nausea. On arrival, patient presented with nontoxic appearance, tachycardia and low-grade temp. UA was collected. Concern for infection. Patient underwent sepsis workup. CT of the abdomen was obtained. Imaging reviewed. There is a left perinephritic edema, most likely pyelonephritis. Labs positive for mild leukocytosis, with mild electrolyte disturbances. Findings discussed with the ER. I agree for admission. Plan as follows: -Sepsis secondary to pyelonephritis: Admit patient for medical services. Patient hemodynamically stable. Dispo MedSurg. Sepsis workup done at the ER. Continue IV fluid, normal saline at 100 MLS per hour UA and blood culture pending Started on IV ceftriaxone Monitor for sepsis, temp, and hemodynamically decompensation Pain management, Tylenol and morphine as needed Monitor renal output. -Hypokalemia: Replace electrolytes. Monitor for electrolyte imbalance monitor and storage bin tender Repeat labs Serial CMP CBC -Current heavy tobacco user: On nicotine patch. Education provided about cessation. Lovenox for DVT prophylaxis. On Protonix Full code Rounded on patient after nurse practitioner. Personally examined and interviewed patient. Agree with exam findings and care plan as documented. Patient continues to require inpatient management for IV antibiotics. Staghorn stone seen on CT of abdomen. Will need urologic eval as an outpatient as this is a potential culprit in her sepsis. White cell count is improved by morning labs from 17-10. Blood pressure soft but stable and had an acceptable range with MAP greater than 65. Continue IV ceftriaxone daily. Cultures pending
--- NOTE | 2023-05-26 01:11 | PC.NURSE ---
Nurse to nurse report to Halina GOMEZ.
--- NOTE | 2023-05-26 01:23 | PC.NURSE ---
pt arrived to floor via wheelchair @01:22
[2023-05-26] MEDS: 0.9 % SODIUM CHLORIDE 1000ML 1,000 ML 999 ML IV (01:47)
[2023-05-26 01:53] LABS: Eosinophils % 1 % (0-3); Lymphocytes % 9 % (10-50); Monocytes % 6 % (2-9); Neutrophils % 84 % (42-76); Total Cells Counted 100
[2023-05-26 01:54] LABS: Platelet Estimate Normal; RBC Morphology Normal
[2023-05-26] MEDS: 0.9 % SODIUM CHLORIDE 1000ML 1,000 ML 50 ML IV (02:49)
[2023-05-26] MEDS: MORPHINE 2MG/ML SYRINGE 2 MG IV (04:06)
[2023-05-26] MEDS: ONDANSETRON 4MG/2ML VIAL 4 MG IV (04:06)
--- NOTE | 2023-05-26 05:21 | EXP.SEPSISRE ---
[facility] Tissue Perfusion Eval Sepsis Re-Evaluation Performed: Yes Date Performed: 05/26/23 Time Performed: 05:21
[2023-05-26] MEDS: POTASSIUM CHLORIDE 20MEQ TAB 40 MEQ PO (05:45)
[2023-05-26 06:33] LABS: Eosinophils # 0.1 K/mm3 (0.0-0.4)
[2023-05-26 06:40] LABS: Basophils % 0.3 % (0.1-2.0); Eosinophils % 0.8 % (0.1-12.0); Hemoglobin 10.6 g/dL (12.2-16.2); Lymphocytes # 2.6 K/mm3 (0.7-4.5); Lymphocytes % 23.6 % (10-50); Mean Corpuscular HGB Conc 34.1 g/dL (31.8-35.4); Mean Corpuscular Volume 93.8 fl (81-99); Mean Platelet Volume 9.5 fl (7.4-10.4); Monocytes # 0.8 K/mm3 (0.1-1.0); Monocytes % 7.4 % (1.7-9.3); Neutrophils # 7.4 K/mm3 (1.8-7.8); Neutrophils % 67.9 % (37.0-80.0); Platelet Count 195 K/mm3 (142-424); Red Blood Count 3.31 M/mm3 (4.20-5.40); Red Cell Distribution Width 14.4 % (11.5-17.5); White Blood Count 10.9 K/mm3 (4.8-10.8)
[2023-05-26 06:49] LABS: Chloride 110 mmol/L (98-107); Sodium 138 mmol/L (136-145)
[2023-05-26 06:50] LABS: Potassium 3.1 mmoL/L (3.5-5.1)
[2023-05-26 06:52] LABS: Alanine Aminotransferase 13 U/L (12-78); Albumin Level 2.9 g/dl (3.5-5.0); Alkaline Phosphatase 87 U/L (38-126); Anion Gap 9.1 mEq/L (5-15); Aspartate Amino Transferase 16 U/L (14-36); Bilirubin,Total 0.4 mg/dl (0.2-1.3); Blood Urea Nitrogen 14 mg/dl (7-17); Calcium 7.4 mg/dl (8.4-10.2); Carbon Dioxide 22 mmol/L (22.0-30.0); Creatinine Clearance Estimated 83 mL/min (50-200); Estimated Glomerular Filt Rate 77 ml/min (>60); GFR (African American) 93 ML/MIN (>60); Globulin 2.9 g/dL (1.3-3.2); Glucose 95 mg/dl (74-100); Total Protein,Serum 5.8 g/dl (6.3-8.2)
--- NOTE | 2023-05-26 08:27 | HMH.PHAINT1 ---
Pharmacy Intervention Comments: Verified with patient that bedside that patient does not take any medications at home prior to admission.
[2023-05-26] MEDS: ENOXAPARIN 40MG/0.4ML SYRINGE 40 MG SQ (08:45)
[2023-05-26] MEDS: PANTOPRAZOLE 40MG TABLET 40 MG PO (08:46)
--- NOTE | 2023-05-26 18:47 | PC.NURSE ---
PT HAS DONE WELL, NO CHANGES FROM PREVIOUS SHIFT. NO C/O PAIN, N/V, IVMF DC. VSS.
[2023-05-27] VITALS: BP 118/47; PULSE 66; PULSE 68; RESP 16; TEMP 36.8; O2SAT 99
[2023-05-27 04:00] VITALS: BP 125/78; PULSE 67; PULSE 76; RESP 16; TEMP 36.9; O2SAT 98; BMI 21.7
--- NOTE | 2023-05-27 04:14 | PC.NURSE ---
HAS HAD A QUIET NIGHT. RECEIVING IVFs. VOICES NO C/O'S. REPORTS OCCASSIONAL DYSURIA,
[2023-05-27 06:27] LABS: Basophils % 0.3 % (0.1-2.0); Chloride 113 mmol/L (98-107); Eosinophils # 0.1 K/mm3 (0.0-0.4); Hematocrit 29.5 % (37.0-47.0); Hemoglobin 10.3 g/dL (12.2-16.2); Lymphocytes # 2.1 K/mm3 (0.7-4.5); Lymphocytes % 21.1 % (10-50); Mean Corpuscular HGB Conc 35.1 g/dL (31.8-35.4); Mean Corpuscular Hemoglobin 32.5 pg (27.0-31.2); Mean Corpuscular Volume 92.7 fl (81-99); Monocytes # 0.6 K/mm3 (0.1-1.0); Monocytes % 5.5 % (1.7-9.3); Neutrophils # 7.3 K/mm3 (1.8-7.8); Neutrophils % 72.2 % (37.0-80.0); Platelet Count 200 K/mm3 (142-424); Red Blood Count 3.18 M/mm3 (4.20-5.40); Red Cell Distribution Width 14.8 % (11.5-17.5); White Blood Count 10.1 K/mm3 (4.8-10.8)
[2023-05-27 06:28] LABS: Potassium 3.4 mmoL/L (3.5-5.1); Sodium 140 mmol/L (136-145)
[2023-05-27 06:30] LABS: Alanine Aminotransferase 11 U/L (12-78); Alkaline Phosphatase 80 U/L (38-126); Aspartate Amino Transferase 13 U/L (14-36); Bilirubin,Total 0.5 mg/dl (0.2-1.3); Blood Urea Nitrogen 10 mg/dl (7-17); Creatinine Clearance Estimated 98 mL/min (50-200); Estimated Glomerular Filt Rate 90 ml/min (>60); GFR (African American) 109 ML/MIN (>60)
[2023-05-27 06:31] LABS: Albumin Level 2.7 g/dl (3.5-5.0); Albumin/Globulin Ratio 0.9 (1.1-1.8); Anion Gap 11.4 mEq/L (5-15); Calcium 7.7 mg/dl (8.4-10.2); Carbon Dioxide 19 mmol/L (22.0-30.0); Globulin 2.9 g/dL (1.3-3.2); Glucose 94 mg/dl (74-100); Magnesium 2.1 mg/dl (1.6-2.3); Total Protein,Serum 5.6 g/dl (6.3-8.2)
--- NOTE | 2023-05-27 07:03 | EXP.DC.SUM ---
General Admission date:: 05/26/23 Discharge date: 05/27/23 HPI HPI HPI: This is a 48-year-old female with no other significant history than tobacco use, and previous kidney stones presenting to the emergency department for evaluation of fever, chills, flank pain, dysuria, and nausea that started 05/20. She states that she increased her water intake without good improvement. She states that it started out as left flank pain, which felt similar to prior kidney stones that she had had, but then it progressed to bilateral flank pain as well as the fevers, chills, and dysuria. She took ibuprofen today around 3 PM without good improvement. No other concerns noted at this time. Admitted for treatment and management. Hospital Course Hospital Course Hospital Course: 48-year-old female with no other significant history than tobacco use, and previous kidney stones presenting to the emergency department for evaluation of fever, chills, flank pain, dysuria, and nausea. On arrival, patient presented with nontoxic appearance, tachycardia and low-grade temp. UA was collected. Concern for infection. Patient underwent sepsis workup. CT of the abdomen was obtained. Imaging reviewed. There is left perinephritic edema, most consistent with nephritis. Also noted to have staghorn calculus. Admitted for sepsis and pyelonephritis. Has done well with antibiotics, symptoms defervesced. Meeting criteria for discharge home to complete oral antibiotics. Will refer to urology as an outpatient. Problems addressed as follows: -Sepsis secondary to pyelonephritis: Admitted for sepsis secondary to pyelonephritis. Started on empiric IV antibiotics with ceftriaxone. Symptoms defervesced over the next 24 hours. Given improvement clinically, transition to oral antibiotics with Levaquin to complete 7-day course. Urine and blood culture still pending at time of discharge. Referred to urology given findings on CT of staghorn calculus in left kidney. Will need definitive treatment in the coming months as this may be an underlying culprit for her infection. No signs of obstruction at this time however. -Hypokalemia: Improved with replacement. Back to normal on day of discharge. Recommend repeat labs and follows up with PCP -Current heavy tobacco user: On nicotine patch. Education provided about cessation. Stable for discharge home. Discussed medications and need for subsequent follow-up. Spent 30 minutes in discharge counseling, documentation, chart review, and direct care with patient. Exam Data for Last 24 hours Vital signs and Labs for Last 24 Hours: Temp Pulse Resp BP Pulse Ox O2 Del Method 98.5 F 76 16 125/78 98 Room Air 05/27/23 04:00 05/27/23 04:00 05/27/23 04:00 05/27/23 04:00 05/27/23 04:00 05/27/23 06:49 Laboratory Results - last 24 hr 05/27/23 05:54: WBC 10.1, RBC 3.18 L, Hgb 10.3 L, Hct 29.5 L, MCV 92.7, MCH 32.5 H, MCHC 35.1, RDW 14.8, Plt Count 200, MPV 9.0, Neut % (Auto) 72.2, Lymph % (Auto) 21.1, [place] % (Auto) 5.5, Eos % (Auto) 1.0, Baso % (Auto) 0.3, Neut # (Auto) 7.3, Lymph # (Auto) 2.1, [place] # (Auto) 0.6, Eos # (Auto) 0.1, Baso # (Auto) 0.0, Sodium 140, Potassium 3.4 L, Chloride 113 H, Carbon Dioxide 19 L, Anion Gap 11.4, BUN 10 D, Creatinine 0.70, Estimated Creat Clear 98, Estimated GFR 90, Est GFR ( Amer) 109, Glucose 94, Calcium 7.7 L, Magnesium 2.1, Total Bilirubin 0.5, AST 13 L, ALT 11 L, Alkaline Phosphatase 80, Total Protein 5.6 L, Albumin 2.7 L, Globulin 2.9, Albumin/Globulin Ratio 0.9 L I & O for Last 24 hours: Intake & Output 05/24/23 05/25/23 05/26/23 05/27/23 23:59 23:59 23:59 23:59 Intake Total 3069 / 3069 Output Total 2 / 2 0 / 0 Balance 3067 / 3067 0 / 0 Weight 59.874 kg 59.738 kg 61.507 kg Constitutional Constitutional: no acute distress and average body habitus *Routine HEENT Exam Head: Present normocephalic Eye: Present EOMI and PERRL ENT: Present mucous membranes moist *Routine Neck Exam Neck: Present supple; Absent lymphadenopathy *Routine Respiratory Exam Respiratory: Present CTA bilaterally *Routine Cardiovascular Exam Cardiovascular: Present RRR *Routine Abdominal Exam Abdominal: Present soft and normoactive bowel sounds; Absent tenderness *Routine Extremities Exam Extremities: Absent cyanosis, clubbing or edema *Routine Skin Exam Skin: Present warm; Absent rash *Routine Neurological Exam Neurological: Present alert, oriented X3 and moving all extremities; Absent altered mental status Results Data Completed and Pending Labs on day of discharge: Labs from last 24 hours 05/27/23 05:54 WBC 10.1 RBC 3.18 L Hgb 10.3 L Hct 29.5 L MCV 92.7 MCH 32.5 H MCHC 35.1 RDW 14.8 Plt Count 200 MPV 9.0 Neut % (Auto) 72.2 Lymph % (Auto) 21.1 [place] % (Auto) 5.5 Eos % (Auto) 1.0 Baso % (Auto) 0.3 Neut # (Auto) 7.3 Lymph # (Auto) 2.1 [place] # (Auto) 0.6 Eos # (Auto) 0.1 Baso # (Auto) 0.0 Sodium 140 Potassium 3.4 L Chloride 113 H Carbon Dioxide 19 L Anion Gap 11.4 BUN 10 D Creatinine 0.70 Estimated Creat Clear 98 Estimated GFR 90 Est GFR ( Amer) 109 Glucose 94 Calcium 7.7 L Magnesium 2.1 Total Bilirubin 0.5 AST 13 L ALT 11 L Alkaline Phosphatase 80 Total Protein 5.6 L Albumin 2.7 L Globulin 2.9 Albumin/Globulin Ratio 0.9 L DS: Diagnosis Discharge Diagnosis (1) Sepsis due to urinary tract infection: Status: Acute Code(s): A41.9 - Sepsis, unspecified organism; N39.0 - Urinary tract infection, site not specified (2) Pyelonephritis: Status: Acute Code(s): N12 - Tubulo-interstitial nephritis, not specified as acute or chronic (3) Acute hypokalemia: Status: Acute Code(s): E87.6 - Hypokalemia (4) Tobacco abuse: Status: Acute Code(s): Z72.0 - Tobacco use Meds Home Medications and Allergies Home Medications Medication Instructions Recorded Confirmed Type levofloxacin 750 mg tablet 750 mg PO 1100 5 days #5 tabs 05/27/23 Rx New Prescriptions to Start Prescriptions: levofloxacin Garland Lynn Allergies Allergy/AdvReac Type Severity Reaction Status Date / Time Penicillins [PENICILLINS] Allergy Mild Verified 05/26/23 00:21 pseudoephedrine Allergy Mild Verified 05/26/23 00:21 [From [facility]] Discharge Plan Disposition Patient Disposition: Home, Self-Care Condition: Good Follow up Plan Follow up with: Omid Almazan APRN [Nurse Practitioner] - 06/08/23 9:45 am Delfino Yost MD [Staff Physician] - 06/27/23 9:15 am (staghorn stone, pyelonephritis, follow-up and further management) Prescriptions/Medication Reconciliation: New levofloxacin 750 mg Tablet 750 mg PO 1100 5 Days Qty: 5 0RF Problem Reconciliation Problems Reviewed?: Yes Patient Discharge Instructions ACTIVITY: Continue current activity DIET: continue same diet Patient Instructions: DI for Urinary Tract Infection (UTI), DI for Sepsis -- Adult Providers Primary Care Provider: Dylon Domingo Admit Provider: Garland Lynn Attending Provider: Garland Lynn
[2023-05-27 08:00] VITALS: BP 113/71; PULSE 60; PULSE 66; RESP 16; TEMP 36.8; O2SAT 98
[2023-05-27] MEDS: PANTOPRAZOLE 40MG TABLET 40 MG PO (08:51)
[2023-05-27] MEDS: ENOXAPARIN 40MG/0.4ML SYRINGE 40 MG SQ (08:51)
[2023-05-27] MEDS: levoFLOXacin 750 MG TABLET PO (10:50)
[2023-05-27] MEDS: ONDANSETRON 4MG/2ML VIAL 4 MG IV (11:42)
--- NOTE | 2023-05-31 15:07 | CARE MANAGER ---
Called and spoke with patient in regards to recent discharge. Patient states that she is doing better and has started antibiotic prescribed at discharge. No concerns voiced at time of call.
--- NOTE | 2023-05-31 16:06 | PC.NURSE ---
reviewed pt urine culture with Dr. Zaldivar. pt currently on correct medication. no action needed at this time
== END 2023-05-27 12:33 | disposition home or self-care (01) ==
LOC: ER 05-26 00:49 → 2ND 05-26 12:05
PROVIDERS: Nurse Practitioner Family; Admitting Provider Internal Medicine Adolescent Medicine; Emergency Provider Emergency Medicine; PCP Emergency Medicine; Visit Provider Internal Medicine Adolescent Medicine
DX: N39.0 Urinary tract infection, site not specified (principal); E87.6 Hypokalemia; F17.210 Nicotine dependence, cigarettes, uncomplicated; N20.0 Calculus of kidney; Z87.442 Personal history of urinary calculi
CPT/HCPCS: 36415; 74176; 80048; 80053; 81001; 83605; 83690; 83735; 85007; 85025; 87040; 87086; 99285; G0378; J0696; J2405

== ENCOUNTER 2024-03-19 15:55 | Emergency (ER) | payer OTHER, SELFPAY ==
[2024-03-19 16:50] VITALS: BP 137/93; PULSE 78; RESP 20; TEMP 36.8; O2SAT 100; BMI 22.1
--- NOTE | 2024-03-19 17:03 | EXP.UTC ---
Discharge Plan Disposition Patient Disposition: Home, Self-Care Condition: Good Prescriptions Prescriptions: New Debrox 6.5 % drops 5 drp otic (ear) DAILY 4 Days Qty: 15 0RF Rx Instructions: in left ear as directed No Action medroxyprogesterone 150 mg/mL suspension 150 mg IM [id number] Qty: 1 2RF Referrals Follow up/Referrals: Omid Almazan APRN [Primary Care Provider] - See instructions Activity Restrictions/Add. Instructions Additional Instructions/Restrictions: Use drops as prescribed Over the counter Loratadine may help with allergy symptoms Over the counter cough and cold medication may help with symptoms Clinical Impressions Clinical Impression: Excess wax in ear, Nasal congestion Instructions Patient Instructions: DI for Allergic Rhinitis, Allergic Rhinitis Print Language Print Language: Kyrgyz Discharge ED Provider: Kimber Fowler [facility] General Stated complaint: ear complaints, cough Mode of Arrival: Ambulatory Source of Information: Patient Limitations: No Limitations Time Seen by Provider: 03/19/24 17:03 Description of Symptoms (Recalled from Triage Doc. by RN): PATIENT C/O RUNNY NOSE, CONGESTION, COUGH, AND EAR CLOGGED TAHT STARTED A FEW DAYS AGO HEENT Symptoms (Recalled from RN notes): Yes Resp Symptoms (Recalled from RN notes): Yes Skin Symptoms (Recalled from RN notes): No MS Symptoms (Recalled from RN notes): No Functional Status (Recalled from RN notes): WNL History of Present Illness Provider Complaint: Patient states that she has been having runny nose, cough and her left ear feels clogged up states she has put peroxide in it but it didnt break the wax loose so she came in to get it checked Related Data Previous Rx's ?Medication ?Instructions ?Recorded medroxyprogesterone 150 mg/mL 150 mg IM [id number] #1 mL 10/05/23 intramuscular suspension carbamide peroxide 6.5 % ear drops 5 drp otic (ear) DAILY 4 days #15 03/19/24 (Debrox) mL Allergies Allergy/AdvReac Type Severity Reaction Status Date / Time Penicillins [PENICILLINS] Allergy Mild Verified 03/16/24 12:55 pseudoephedrine Allergy Mild Verified 03/16/24 12:55 [From SUDAFED] Worker's Comp Is this a Worker's Comp case?: No [facility] Disclaimer: The information contained in this section may have been updated after the patient was seen, as this information can be updated by other users. 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 (Updated 03/19/24 @ 17:09 by Kimber Fowler APRN) Kidney stones Degenerative disk disease Spinal stenosis Lumbar canal stenosis Lumbar disc disease Sciatica of right side Surgical History (Updated 10/05/23 @ 13:48 by HOWARD Jimenez) History of kidney surgery History of tubal ligation Hx of cholecystectomy History of tonsillectomy H/O Spinal surgery Family History Other No significant family history Social History Smoking Status: Current every day smoker tobacco type: cigarettes packs per day: 1 second hand exposure: Yes alcohol intake: never substance use type: denies use current occupational status: unemployed Travel in the last 8 weeks: None ROS Obtained: Yes All systems reviewed & no additional complaints except as documented and Yes Systems reviewed as appropriate & no additional complaints except as documented Constitutional Constitutional: Reports system reviewed and no additional complaints, except as documented and Reports as per HPI ENT Ears, Nose, Mouth, and Throat: Reports system reviewed and no additional complaints, except as documented, Reports as per HPI, Reports nasal congestion, Reports nasal discharge and Reports other (clogged left ear) Cardiovascular Cardiovascular: Reports system reviewed and no additional complaints, except as documented and Reports as per HPI Respiratory Respiratory: Reports system reviewed and no additional complaints, except as documented, Reports as per HPI and Reports cough Physical Exam General General appearance: alert and in no apparent distress ENT ENT exam: Present mucous membranes moist Expanded ENT Exam TM/Canal exam: Left TM: cerumen impaction Nose exam: Absent sinus tenderness Throat exam: Present normal inspection Respiratory Respiratory exam: Present normal lung sounds bilaterally; Absent respiratory distress or wheezes Cardiovascular Cardiovascular exam: Present regular rate, normal rhythm and normal heart sounds Neurological Exam Neurological exam: Present alert, oriented X3 and normal gait Medical Decision Making Medical Records Screening: Per USPSTF and CDC recommendations, given the prevalence of disease in our region, it is our hospital?s policy to screen for HIV and viral Hepatitis for all patients aged 18 and over and those with ongoing risk factors. Oc Inquiry Pt receiving controlled substance: No Oc was queried for this patient: No Vital Signs: 03/19/24 16:50 Temperature 98.2 F Temperature Source Oral Pulse Rate [Left Brachial] 78 Respiratory Rate 20 Blood Pressure [Left Arm] 137/93 H Blood Pressure Mean [Left Arm] 107 Blood Pressure Source [Left Arm] Automatic Cuff Blood Pressure Position [Left Arm] Sitting 02 Sat by Pulse Oximetry 100 Oxygen Delivery Method Room Air Medical Decision Narrative: discussed flushing of left ear to remove ear wax and patient declined wants to try the Debrox drops
[2024-03-19 17:12] VITALS: BP 137/93; PULSE 78; RESP 20; TEMP 36.8; O2SAT 100
== END 2024-03-19 17:13 | disposition home or self-care (01) ==
PROVIDERS: Emergency Provider Nurse Practitioner; PCP Nurse Practitioner Family
DX: R05.9 Cough, unspecified
CPT/HCPCS: 99213; G0381